=== PATIENT | male | born 1945 | race Hispanic/Latino ===

== ENCOUNTER 2020-10-11 06:05 | Day surgery (SDC) | payer OTHER, MEDICARE ==
[~2020-10-11] VITALS: Ht 172.7 cm; Wt 80.7 kg
[~2020-10-11 06:05] MED LIST: ALBU18HF7 IH; ASPI-1197 PO; FURO40TA5 PO; LINA145C PO; SUCR1TAB2 PO
[2020-10-11] MEDS ORDERED: SODIUM CHLORIDE 0.9% 1000ML 1,000 ML IV ONE (06:14)
[2020-10-11 07:14] VITALS: BP 207/84
[2020-10-11] MEDS ORDERED: METO50TA18 PO (07:36)
[2020-10-11] MEDS ORDERED: DICY20TA11 PO (07:36)
[2020-10-11] MEDS ORDERED: LOSA25TA41 PO (07:36)
[2020-10-11] MEDS ORDERED: VITAD50000 PO (07:50)
[2020-10-11] MEDS ORDERED: COLC0.6C3 PO (07:50)
[2020-10-11] MEDS ORDERED: CLON0.1T PO (07:50)
[2020-10-11] MEDS ORDERED: CYCL5TAB PO (07:50)
[2020-10-11] MEDS ORDERED: PANT40TA54 PO (07:50)
[2020-10-11] MEDS ORDERED: CITA10TA7 PO (07:50)
[2020-10-11] MEDS ORDERED: ALBU18HF7 IH (07:50)
[2020-10-11] MEDS ORDERED: METO5TAB2 PO (07:50)
[2020-10-11] MEDS ORDERED: ATOR20TA65 PO (07:50)
[2020-10-11] MEDS ORDERED: TEMA15CA PO (07:50)
[2020-10-11] MEDS ORDERED: PROPOFOL 10 MG/ML 20ML VIAL IV ONE (09:17)
[2020-10-11] MEDS ORDERED: GLYCOPYRROLATE 0.2 MG/ML 5 ML VIAL ONE (09:21)
[2020-10-11 09:36] VITALS: BP 148/56
[2020-10-11 09:41] VITALS: BP 156/62
[2020-10-11 09:45] VITALS: BP 173/74
[2020-10-11 09:51] VITALS: BP 183/78
== END 2020-10-11 10:09 | disposition home or self-care (01) ==
LOC: ENDO 06:05 → DAH 06:05 → ENDO 10:09
PROVIDERS: ATTEND Internal Medicine Gastroenterology
DX: R10.13 Epigastric pain (principal); K21.00 Gastro-esophageal reflux disease with esophagitis, without bleeding; K29.70 Gastritis, unspecified, without bleeding; I10 Essential (primary) hypertension; I25.10 Atherosclerotic heart disease of native coronary artery without angina pectoris; F41.9 Anxiety disorder, unspecified; Z86.73 Personal history of transient ischemic attack (TIA), and cerebral infarction without residual deficits; E78.5 Hyperlipidemia, unspecified; F32.9 Major depressive disorder, single episode, unspecified; M19.90 Unspecified osteoarthritis, unspecified site; K59.00 Constipation, unspecified; K57.30 Diverticulosis of large intestine without perforation or abscess without bleeding; K76.0 Fatty (change of) liver, not elsewhere classified; Z79.82 Long term (current) use of aspirin; Z79.899 Other long term (current) drug therapy; Z20.828 Contact with and (suspected) exposure to other viral communicable diseases
CPT/HCPCS: 36415; 43239; 93005; A4215; A4221; A4222; A4606; A4620; A4657; A4663; C9803; J2704; J3490; J7030; U0003

== ENCOUNTER → 2021-11-10 | Outpatient (CLI) | payer OTHER, MEDICARE ==
[~2021-11-10] MED LIST changes: +ATOR20TA65 PO; +CITA10TA89 PO; +CLON0.1T PO; +COLC0.6C3 PO; +CYCL5TAB PO; +DICY20TA3 PO; +LOSA25TA41 PO; +METO50TA18 PO; +METO5TAB2 PO; +PANT40TA54 PO; +TEMA15CA PO; +VITAD50000 PO
== END | disposition home or self-care (01) ==
LOC: OIH 14:49
PROVIDERS: ATTEND Internal Medicine Cardiovascular Disease
DX: I65.23 Occlusion and stenosis of bilateral carotid arteries (principal)
CPT/HCPCS: 93880